=== PATIENT | female | born 1970 | race African-American/Black ===

== ENCOUNTER → 2016-10-04 | Outpatient (CLI) | payer OTHER ==
[~2016-10-04] MED LIST: LANS30CA17 PO
--- NOTE | 2016-10-04 10:01 | RAD ---
DATE: 10/04/2016 EXAM: DIGITAL DIAGNOSTIC BILATERAL, BREAST BILATERAL HISTORY: Axillary lumps COMPARISON: Baseline study This study was interpreted with the benefit of Computerized Aided Detection (CAD). FINDINGS: There are scattered fibroglandular densities in the breasts. In the left breast there is a 9 mm nodule in the posterior aspect of the breast at the 4:00 location, located approximately 10 cm from the nipple. There is an additional 8 mm nodule in the left breast posteriorly at the 3:00 location located approximately 12 cm from the nipple. No other unusual breast densities are seen. There are small lymph node type densities in both axillary regions. No suspicious microcalcifications are evident Bilateral axillary and left breast ultrasound, 10/04/2016: The area of palpable concern in the right axilla was scanned. There is a small nodule located along the posterior aspect of the skin containing hypoechoic and isoechoic components. It measures approximately 7 mm in diameter. No internal color flow is seen. There is mild hypervascularity along its margin. This probably represents an inflammatory process. The right axilla is otherwise unremarkable. The area of palpable concern in the left axilla was also scanned. There is a 7-8 mm nodule located along the posterior margin of the skin with sonographic characteristics similar to that seen on the right. An inflammatory process such as an inflamed/infected sebaceous cyst is suspected. No other abnormality is seen in the left axilla. A targeted study of the lateral aspect of the left breast was then performed in the area where nodules were seen on the mammograms. At the 3:00 location there is a 8 mm smooth, lobulated hypoechoic nodule. This process has a benign appearance and may represent a cluster of complicated cysts, a fibroadenoma or a lymph node. At the 4:00 location in the left breast there is a 9 mm hypoechoic nodule with an echogenic hilum compatible with a benign intramammary lymph node. Its margins are smooth. Both of these left breast nodules correspond in location to the mammographic abnormalities. IMPRESSION: 1. Benign-appearing intramammary lymph node at the 4:00 location in the left breast. 2. Additional small benign-appearing nodule at the 3:00 location in the left breast as described above. Sonographic follow-up in 6 months is suggested to confirm stability. 3. No right mammographic abnormality is detected. 4. Targeted ultrasound examination of the areas of palpable concern in both axillary regions demonstrate small subcutaneous complex nodules which are probably inflammatory. Clinical and possibly sonographic follow-up is suggested. BI-RADS CATEGORY: 3 PROBABLY BENIGN FINDING(S)-SHORT INTERVAL FOLLOW-UP SUGGESTED RECOMMENDED FOLLOW-UP: 6M 6 MONTH FOLLOW-UP PQRS compliance statement: Patient information was entered into a reminder system with a target due date for the next mammogram. Mammography is a sensitive method for finding small breast cancers, but it does not detect them all and is not a substitute for careful clinical examination. A negative mammogram does not negate a clinically suspicious finding and should not result in delay in biopsying a clinically suspicious abnormality. "Our facility is accredited by the [employer] Mammography [employer]."
== END | disposition home or self-care (01) ==
LOC: KCIC MAMMO 08:23
PROVIDERS: ATTEND Registered Nurse
DX: N63 Unspecified lump in breast (principal)
CPT/HCPCS: 76641; G0204; 77066

== ENCOUNTER → 2017-03-23 | Outpatient (CLI) | payer OTHER ==
[~2017-03-23] MED LIST changes: -LANS30CA17 PO; +LANS30CA66 PO
--- NOTE | 2017-03-23 13:38 | RAD ---
EXAM: Left breast ultrasound. HISTORY: Six-month follow-up of left breast nodules. COMPARISON: None. FINDINGS: Sonographic evaluation of the left breast was performed at the 3:00 and 4:00 positions of prior concern. At the 3:00 position, there is a bilobed hypoechoic nodule measuring 7 x 3 x 4 mm. Its morphology suggests a lymph node. At the 4:00 position, another nodule measuring 8 x 5 mm, also consistent with a lymph node. These are stable. There is no suspicious finding. IMPRESSION: 1. BI-RADS Category 3: Probably benign findings. 2. Recommend ongoing follow-up of the lateral left breast nodules to confirm stability when the patient returns for bilateral mammography in 6 months.
== END | disposition home or self-care (01) ==
LOC: KCIC US 12:37
PROVIDERS: ATTEND Registered Nurse
DX: N63.10 Unspecified lump in the right breast, unspecified quadrant (principal)
CPT/HCPCS: 76641